=== PATIENT | male | born 1940 | race Caucasian/White ===

== ENCOUNTER 2023-05-31 10:32 | Observation (INO) | payer MEDICARE ==
[2023-05-31] MEDS ORDERED: SODIUM CHLORIDE 0.9% 500 ML 500 ML IV STA (12:51)
[2023-05-31 14:12] LABS: Basophils % (A) 0 %; Eosinophils % (A) 0 %; HCT 43.3 % (39.0-53.0); HGB 14.4 gm/dL (13.0-17.5); Lymphocytes # (A) 0.6 k/uL (1.0-4.8); Lymphocytes % (A) 10 %; MCH 31.8 pg (25.0-35.0); MCHC 33.2 g/dL (31.0-37.0); MCV 95.7 fL (80.0-100.0); Mean Platelet Volume 8.4; Monocytes # (A) 0.3 k/uL (0-1.0); Monocytes % (A) 5 %; Neutrophils # (A) 5.5 k/uL (1.3-7.7); Neutrophils % (A) 84 %; Platelet Count 171 k/uL (150-450); RBC 4.53 m/uL (4.30-5.90); RDW 13.4 % (11.5-15.5); WBC 6.5 k/uL (3.8-10.6)
[2023-05-31 14:24] LABS: ALT 17 U/L (4-49); African American GFR (CKD) 81 (>60 ml/min/1.73 sqM); Albumin 4.1 g/dL (3.5-5.0); Anion Gap 8 mmol/L; Blood Urea Nitrogen 18 mg/dL (9-20); Calcium 9.2 mg/dL (8.4-10.2); Carbon Dioxide 22 mmol/L (22-30); Chloride 108 mmol/L (98-107); Glucose 107 mg/dL (74-99); Non-African American GFR(CKD) 70 (>60 ml/min/1.73 sqM); Sodium 138 mmol/L (137-145); Total Bilirubin 0.8 mg/dL (0.2-1.3); Total Protein 7.6 g/dL (6.3-8.2)
[2023-05-31 14:25] LABS: AST 28 U/L (17-59); Alkaline Phosphatase 77 U/L (38-126); Potassium 4.5 mmol/L (3.5-5.1)
--- NOTE | 2023-05-31 15:10 | XR ---
EXAMINATION TYPE: XR chest 2V DATE OF EXAM: 05/31/2023 3:05 PM CLINICAL INDICATION:Male, 83 years old with history of lightheaded, vomiting; PHH COMPARISON: None TECHNIQUE: XR chest 2V Frontal and lateral views of the chest. FINDINGS: Lungs/Pleura: There is no evidence of pleural effusion, focal consolidation, or pneumothorax. Pulmonary vascularity: Unremarkable. Heart/mediastinum: Cardiomediastinal silhouette is unremarkable. A loop recorder projects over the le ft thorax over the heart. Musculoskeletal: No acute osseous pathology. Midline sternotomy wires are noted. Remote right-sided r ib fractures. Other findings: Radiopaque foreign body projects over the left shoulder. IMPRESSION: No acute cardiopulmonary disease/process.
--- NOTE | 2023-05-31 15:15 | CT ---
EXAMINATION TYPE: CT brain wo con DATE OF EXAM: 05/31/2023 COMPARISON: None HISTORY: Ataxia and slurred speech CT DLP: 1095.4 mGycm Automated exposure control for dose reduction was used. FINDINGS: The ventricles, basal cisterns and sulci over the convexities are within normal limits for the patien t's age and there is no mass effect or shift of the midline structures. There is a small remote infarct involving the left parietal cortex and subcortical white matter. There are remote infarcts in the left basal ganglia with mild ex vacuo dilatation of left lateral yusef tricle There is a subtle 9.8 mm round area of decreased density in the left frontal subcortical white matte r. This could be artifactual and caused by volume averaging with adjacent sulcus. Cannot definitively exclude a small focal mass. MRI of the brain with contrast would be useful for further evaluation. There is no acute intra or extra-axial hemorrhage. The posterior fossa including the brainstem, fourth ventricle and cerebellar pontine angles are gross ly normal. Intraorbital contents appear normal and symmetric. Visualized paranasal sinuses and mastoid air cells are well aerated. IMPRESSION: 1. NO ACUTE BLEED OR MASS EFFECT. 2. REMOTE LEFT PARIETAL AND LEFT BASAL GANGLIA INFARCTS. 3. CANNOT EXCLUDE SMALL MASS IN THE LEFT FRONTAL REGION DESCRIBED ABOVE. MRI THE BRAIN WITH CONTRA ST WOULD BE USEFUL FOR FURTHER EVALUATION.
[2023-05-31] MEDS ORDERED: ASPIRIN 325 MG TAB PO STA (16:06)
--- NOTE | 2023-05-31 16:07 | ED ---
Dizziness HPI - General Chief Complaint: Dizziness Stated Complaint: dizziness Time Seen by Provider: 05/31/23 12:05 Source: patient Mode of arrival: ambulatory Limitations: no limitations - History of Present Illness Initial Comments: 83-year-old male with past medical history of A. fib, previous CVA with no residual deficits he presents emergency department reporting dizziness. Reports to intermittent episodes of dizziness upon standing and positional changes. Patient had an episode this morning when he got acutely dizzy while at the kitchen table. He had an episode of vomiting. Family reports that he was having difficulties with ambulation. Upon arrival to the hospital the patient states that his symptoms completely resolved. There is no associated headaches or visual changes. No speech deficits, confusion, unilateral numbness or wea kness. states the patient has had previous episodes of dizziness previously. He had an episode where he had some slurred speech. He was never evaluated for it. He does have A. fib. He does not take any anticoagulation. No recent upper respiratory infections. No recent head trauma. No other alleviating, precipitating or modifying factors - Related Data Home Medications Medication Instructions Recorded Confirmed Rosuvastatin [Crestor] 10 mg PO DAILY 05/31/23 05/31/23 lisinopriL [Zestril] 10 mg PO DAILY 05/31/23 05/31/23 Allergies Allergy/AdvReac Type Severity Reaction Status Date / Time No Known Allergies Allergy Verified 05/31/23 17:17 Review of Systems ROS Statement: Those systems with pertinent positive or pertinent negative responses have been documented in the HPI. ROS Other: All systems not noted in ROS Statement are negative. General Exam Limitations: no limitations General appearance: alert, in no apparent distress Head exam: Present: atraumatic, normocephalic, normal inspection Eye exam: Present: normal appearance, PERRL, EOMI, nystagmus (Horizontal). Absent: scleral icterus, conjunctival injection, periorbital swelling ENT exam: Present: normal exam, mucous membranes moist Neck exam: Present: normal inspection. Absent: tenderness, meningismus, lymp hadenopathy Respiratory exam: Present: normal lung sounds bilaterally. Absent: respiratory distress, wheezes, rales, rhonchi, stridor Cardiovascular Exam: Present: regular rate, normal rhythm, normal heart sounds. Absent: systolic murmur, diastolic murmur, rubs, gallop, clicks GI/Abdominal exam: Present: soft, normal bowel sounds. Absent: distended, tenderness, guarding, rebound, rigid Extremities exam: Present: normal inspection, full ROM, normal capillary refill. Absent: tenderness, pedal edema, joint swelling, calf tenderness Back exam: Present: normal inspection Neurological exam: Present: alert, oriented X3, CN II-XII intact, normal gait, other (No dysdiadochokinesia. Finger to nose is symmetric bilaterally) Psychiatric exam: Present: normal affect, normal mood Skin exam: Present: warm, dry, intact, normal color. Absent: rash Course Vital Signs 05/31/23 05/31/23 05/31/23 11:37 12:00 13:00 Temperature 95.9 F L Pulse Rate 60 60 60 Respiratory 18 Rate Blood Pressure 158/71 129/65 131/70 O2 Sat by Pulse 99 99 98 Oximetry 05/31/23 05/31/23 05/31/23 14:00 14:22 16:43 Temperature Pulse Rate 61 64 65 Respiratory 18 18 Rate Blood Pressure 134/76 119/75 117/63 O2 Sat by Pulse 98 98 98 Oximetry Medical Decision Making - Medical Decision Making Was pt. sent in by a medical professional or institution (, PA, SHOT CORE DRILL OPERATOR, urgent care, hospital, or fpc...) When possible be specific @ -No Did you speak to anyone other than the patient for history (EMS, parent, family, police, friend...)? What history was obtained from this source @ -Spoke with patient's family Did you review nursing and triage notes (agree or disagree)? Why? @ -I reviewed and agree with nursing and triage notes Were old charts reviewed (outside hosp., previous admission, EMS record, old EKG, old radiological studies, urgent care reports/EKG's, fpc records)? Report findings @ -No old charts were reviewed Differential Diagnosis (chest pain, altered mental status, abdominal pain women, abdominal pain men, vaginal bleeding, weakness, fever, dyspnea, syncope, hea dache, dizziness, GI bleed, back pain, seizure, CVA, palpatations, mental health, musculoskeletal)? @ -Differential Dizziness: Benign paroxysmal positional Vertigo, Menieres disease, otitis media, acoustic neuroma, vertebrobasilar insufficiency, cerebellar stroke, encephalitis, hypovolemic, arrhythmia, coronary artery syndrome, anemia, this is not meant to be an all-inclusive list EKG interpreted by me (3pts min.). @ -First EKG done at 1151 demonstrates a flutter with a rate of 59. QRS 100. QTC 448. No acute ST segment elevations or depressions Second EKG done at 1318 demonstrates a flutter with a rate of 59. QRS 108. QTC of 438. No acute ST segment elevations or depressions X-rays interpreted by me (1pt min.). @ -Yes and demonstrates no acute process CT interpreted by me (1pt min.). @ -Yes and demonstrates multiple old CVAs. Possible 9 mm mass left frontal lobe U/S interpreted by me (1pt. min.). @ -None done What testing was considered but not performed or refused? (CT, X-rays, U/S, la bs)? Why? @ -MRI however not available until tomorrow What meds were considered but not given or refused? Why? @ -None Did you discuss the management of the patient with other professionals (professionals i.e. , PA, SHOT CORE DRILL OPERATOR, lab, RT, psych nurse, manager social services, pit recorder, teacher, event security officer, protective services case worker)? Give summary @ -Spoke with Dr. Frey who was agreeable to admitting the patient Was smoking cessation discussed for >3mins.? @ -No Was critical care preformed (if so, how long)? @ -No Were there social determinants of health that impacted care today? How? (Homelessness, low income, unemployed, alcoholism, drug addiction, transportation, low edu. Level, literacy, decrease access to med. care, skilled nursing, rehab)? @ -No Was there de-escalation of care discussed even if they declined (Discuss DNR or withdrawal of care, Hospice)? DNR status @ -No What co-morbidities impacted this encounter? (DM, HTN, Smoking, COPD, CAD, Cancer, CVA, ARF, Chemo, Hep., AIDS, mental health diagnosis, sleep apnea, morbid obesity)? @ -A flutter/afib Was patient admitted / discharged? Hospital course, mention meds given and route, prescriptions, significant lab abnormalities, going to OR and other pertinent info. @ -Upon arrival patient was evaluated in room 27. Thorough history and ph ysical exam was performed. IV was established. Laboratory studies were conducted. Patient is completely asymptomatic upon my evaluation. He is able to ambulate without difficulty. Orthostatics were obtained and are negative. Laboratory studies are completed. CT of the brain was performed which demonstrates old CVA with a questionable mass left frontal lobe. I did discuss the findings with family. I did call and speak with MRI. They are unable to obtain an MRI until tomorrow. I did call and spoke with Dr. Frey to request permission for admission until tomorrow. He was agreeable to admit the patient. MRI is ordered. he is requesting CTA which is also ordered. Patient remained asymptomatic and is awaiting a bed on the floor Orthostatics performed and are negative - supine blood pressure 125/63 with heart rate of 55, sitting blood pressure 120/70 with heart rate of 65, standing blood pressure 119/75 with a heart rate of 66 Undiagnosed new problem with uncertain prognosis? @ -Yes Drug Therapy requiring intensive monitoring for toxicity (Heparin, Nitro, Insulin, Cardizem)? @ -No Were any procedures done? @ -No Diagnosis/symptom? @ -Acute vertigo, possible frontal mass, aflutter, hx CVA Acute, or Chronic, or Acute on Chronic? @ -acute Uncomplicated (without systemic symptoms) or (systemic symptoms)? @ -complicated Side effects of treatment? @ -No Exacerbation, Progression, or Severe Exacerbation? @ -No Poses a threat to life or bodily function? How? (Chest pain, USA, MA, pneumonia, PE, COPD, DKA, ARF, appy, cholecystitis, CVA, Diverticulitis, Homicidal, Suicidal, threat to staff... and all critical care pts) @ -No - Lab Data Result diagrams: 05/31/23 13:59 05/31/23 13:59 Lab Results 05/31/23 05/31/23 05/31/23 Range/Units 13:59 13:59 13:59 WBC 6.5 (3.8-10.6) k/uL RBC 4.53 (4.30-5.90) m/uL Hgb 14.4 (13.0-17.5) gm/dL Hct 43.3 (39.0-53.0) % MCV 95.7 (80.0-100.0) fL MCH 31.8 (25.0-35.0) pg MCHC 33.2 (31.0-37.0) g/dL RDW 13.4 (11.5-15.5) % Plt Count 171 (150-450) k/uL MPV 8.4 Neutrophils % 84 % Lymphocytes % 10 % Monocytes % 5 % Eosinophils % 0 % Basophils % 0 % Neutrophils # 5.5 (1.3-7.7) k/uL Lymphocytes # 0.6 L (1.0-4.8) k/uL Monocytes # 0.3 (0-1.0) k/uL Eosinophils # 0.0 (0-0.7) k/uL Basophils # 0.0 (0-0.2) k/uL Carbon Monoxide, Quant (<10.0) % Sodium 138 (137-145) mmol/L Potassium 4.5 (3.5-5.1) mmol/L Chloride 108 H (98-107) mmol/L Carbon Dioxide 22 (22-30) mmol/L Anion Gap 8 mmol/L BUN 18 (9-20) mg/dL Creatinine 0.99 (0.66-1.25) mg/dL Est GFR (CKD-EPI)AfAm 81 (>60 ml/min/1.73 sqM) Est GFR (CKD-EPI)NonAf 70 (>60 ml/min/1.73 sqM) Glucose 107 H (74-99) mg/dL Calcium 9.2 (8.4-10.2) mg/dL Total Bilirubin 0.8 (0.2-1.3) mg/dL AST 28 (17-59) U/L ALT 17 (4-49) U/L Alkaline Phosphatase 77 (38-126) U/L Troponin I 0.017 (0.000-0.034) ng/mL Total Protein 7.6 (6.3-8.2) g/dL Albumin 4.1 (3.5-5.0) g/dL 05/31/23 Range/Units 13:59 WBC (3.8-10.6) k/uL RBC (4.30-5.90) m/uL Hgb (13.0-17.5) gm/dL Hct (39.0-53.0) % MCV (80.0-100.0) fL MCH (25.0-35.0) pg MCHC (31.0-37.0) g/dL RDW (11.5-15.5) % Plt Count (150-450) k/uL MPV Neutrophils % % Lymphocytes % % Monocytes % % Eosinophils % % Basophils % % Neutrophils # (1.3-7.7) k/uL Lymphocytes # (1.0-4.8) k/uL Monocytes # (0-1.0) k/uL Eosinophils # (0-0.7) k/uL Basophils # (0-0.2) k/uL Carbon Monoxide, Quant 2.4 (<10.0) % Sodium (137-145) mmol/L Potassium (3.5-5.1) mmol/L Chloride (98-107) mmol/L Carbon Dioxide (22-30) mmol/L Anion Gap mmol/L BUN (9-20) mg/dL Creatinine (0.66-1.25) mg/dL Est GFR (CKD-EPI)AfAm (>60 ml/min/1.73 sqM) Est GFR (CKD-EPI)NonAf (>60 ml/min/1.73 sqM) Glucose (74-99) mg/dL Calcium (8.4-10.2) mg/dL Total Bilirubin (0.2-1.3) mg/dL AST (17-59) U/L ALT (4-49) U/L Alkaline Phosphatase (38-126) U/L Troponin I (0.000-0.034) ng/mL Total Protein (6.3-8.2) g/dL Albumin (3.5-5.0) g/dL Disposition Clinical Impression: Vertigo, Atrial flutter, Brain mass Disposition: ADMITTED IP TO THIS HOSP Condition: Stable Is patient prescribed a controlled substance at d/c from ED?: No Time of Disposition: 16:13 Decision to Admit Reason: Admit from EC Decision Date: 05/31/23 Decision Time: 16:13
[2023-05-31] MEDS ORDERED: NALOXONE 0.4 MG/ML 1 ML VIAL IV PRN (16:14)
--- NOTE | 2023-05-31 18:10 | P.HPIM ---
History of Present Illness H&P Date: 05/31/23 Patient is a 83-year-old male with history of CAD status post CABG, atrial fibrillation, prior strokes with no deficits presenting after an episode of lightheadedness. He claims that using the bathroom this morning and while urinating he had an episode where he felt weakness and lightheadedness. He denies any chest pain, shortness of breath, abdominal pain, urinary or bowel complaints. He did have an episode of emesis after he had that episode of syncope. He denies any other recent falls. He denies any travel history, sick contacts, fevers, chills. In the ED, temperature was 95.9, pulse 60, respiratory rate 18, blood pressure 158/71, saturating at 99% on room air. WBC 6.5, hemoglobin 14.4, potassium 4.5, chloride 108, glucose 107, creatinine 0.99, troponin 0.017. Chest x-ray personally interpreted shows no acute process. CT head does not show any acute bleed or mass effect. Remote left parietal and left basal ganglia infarcts. Also says cannot exclude small mass in the left frontal region. Patient would benefit from an MRI. Patient being admitted for further workup for syncope and possible brain mass. Pertinent positives and negatives as discussed in HPI, a complete review of systems was performed and all other systems are negative. Patient seen and examined at bedside. Vital signs reviewed General: nontoxic, no distress, appears at stated age Derm: warm, dry Head: atraumatic, normocephalic, symmetric Eyes: EOMI, no lid lag, anicteric sclera, pupils equal round reactive to light ENT: Nose and ears atraumatic Neck: No thyromegaly, supple Mouth: no lip lesion, mucus membranes moist Cardiovascular: S1S2 reg, systolic murmur, no edema Lungs: clear to auscultation bilateral, no rhonchi, no rales, no wheeze, no accessory muscle use Abdominal: soft, nontender to palpation, no guarding, no appreciable organomegaly Ext: no gross muscle atrophy, muscle strength muscle strength 5 out of 5 in all 4 extremities, no contractures Neuro: CN II-XII grossly intact Psych: Alert, oriented, appropriate affect Assessment/Plan: Syncope, likely vasovagal History of prior CVA Suspected left frontal lobe mass History of atrial fibrillation CAD status post CABG Hypertension -Most of his symptoms have now resolved -Orthostatic vitals pending -Patient does have a systolic murmur, would benefit from echocardiogram as an outpatient -CTA head and neck pending -MRI brain with and without contrast pending to evaluate possible left frontal lobe mass -Continue telemetry -Continue rosuvastatin 10 mg, started on ASA 81 mg -Continue lisinopril 10 mg The patient is admitted with an anticipated less than 2 midnight stay as observation status for evaluation of brain mass. Surrogate decision-maker: Son CODE STATUS: Full code DVT prophylaxis: Lovenox Anticipated discharge date: Pending clinical course Anticipated discharge place: Pending clinical course A total of 66 minutes was spent on the care of this complex patient more than 50% of the time was spent in counseling and care coordination. Medications and Allergies Home Medications Medication Instructions Recorded Confirmed Type Rosuvastatin [Crestor] 10 mg PO DAILY 05/31/23 05/31/23 History lisinopriL [Zestril] 10 mg PO DAILY 05/31/23 05/31/23 History Allergies Allergy/AdvReac Type Severity Reaction Status Date / Time No Known Allergies Allergy Verified 05/31/23 17:17 Physical Exam Vitals: Vital Signs Temp Pulse Resp BP Pulse Ox 05/31/23 16:43 65 18 117/63 98 05/31/23 14:22 64 18 119/75 98 05/31/23 14:00 61 134/76 98 05/31/23 13:00 60 131/70 98 05/31/23 12:00 60 129/65 99 05/31/23 11:37 95.9 F L 60 18 158/71 99 Intake and Output 05/31/23 05/31/23 05/31/23 06:59 14:59 22:59 Other: Weight 77.111 kg Results CBC & Chem 7: 05/31/23 13:59 05/31/23 13:59 Labs: Abnormal Lab Results - Last 24 Hours (Table) 05/31/23 05/31/23 Range/Units 13:59 13:59 Lymphocytes # 0.6 L (1.0-4.8) k/uL Chloride 108 H (98-107) mmol/L Glucose 107 H (74-99) mg/dL
--- NOTE | 2023-06-01 03:40 | CT ---
EXAMINATION TYPE: CT angio head neck DATE OF EXAM: 05/31/2023 5:32 PM COMPARISON: Earlier same day CT brain. CLINICAL INDICATION:Male, 83 years old with history of recurrent vertigo; PHH, Recurrent vertigo TECHNIQUE: Axially acquired helical CT angiogram of the head and neck was obtained with contrast. Axi al images are supplemented with 3D reconstructions [facility] NASCET criteria used. Contrast used: 65 mL of Isovue 300 with IV Contrast, Oral contrast used: None. CT DLP: 495.9 mGycm, Automated exposure control for dose reduction was used. FINDINGS: CTA Neck: A 3 vessel aortic arch is shown. Atherosclerotic plaque is present in the aortic arch and at the origin of the branch vessels, without significant stenosis at the origins. LEFT CIRCULATION: Slightly farther distally in the proximal left subclavian artery there is crescenti c mostly soft plaque resulting in under 50% stenosis. Coarse calcific plaque at the origin of the lef t vertebral artery with approximately 70% diameter stenosis. The more distal vertebral artery is tort uous before entering the vertebral column, but is patent throughout the cervical segments to the skul l base. Left vertebral is slightly dominant. The common carotid shows multifocal mixed plaques but is patent without significant stenosis. At the carotid bifurcation and extending into the proximal ICA, there is moderate to heavy mixed soft and ca lcified plaque, associated with 50% maximum diameter stenosis. ICA is then patent to the skull base. No dissection or pseudoaneurysm is evident. RIGHT CIRCULATION: Brachiocephalic artery is patent. Mixed mostly soft plaque in the proximal right s ubclavian artery results in under 50% stenosis. Common carotid is patent, with multifocal atheroscler otic disease resulting in under 50% stenosis. Mixed atherosclerotic disease at the carotid bifurcatio n and proximal ICA associated with less than 50% stenosis. Additional coarse calcifications slightly farther distally without significant stenosis. ICA is then patent to the skull base. No dissection or pseudoaneurysm is evident. Other: Included lung apices show mild scarring and emphysematous changes without acute infiltrate. Pu lmonary trunk appears normal in size at 2.6 cm but the right and left main arteries are prominent thanh suring up to 2.8 cm and 2.5 cm respectively, suggestive of pulmonary hypertension. Partially seen ant erior mediastinal clips and sternal wire sutures, likely from prior CABG. Moderate degenerative mejia es of the cervical spine, with mild reversal of the normal lordosis. Disc osteophyte complexes and fa cet disease causes mild to moderate canal and left neural foraminal stenosis C3-C4, moderate to sever e right neural foraminal stenosis. At C4-C5, moderate spinal canal and bilateral neural foraminal chelly noses. At C5-C6, moderate spinal canal and left neural foraminal stenosis, moderate to severe right n euroforaminal stenosis. At C6-C7, moderate canal and bilateral neural foraminal stenosis. Several coa rse calcifications within the left parotid. Multiple tonsilloliths of the bilateral palatine tonsils. CTA Head: POSTERIOR CIRCULATION: There are a couple of areas of calcification with less than 50% stenosis in th e V4 segment of the left vertebral. In the V4 segment of the right vertebral, there is coarse calcifi cation in its midportion which appears associated with approximately 75% stenosis. Basilar artery is patent. Major branches in the posterior fossa appear patent. The right SURGICAL SERVICES DIRECTOR arises from the basilar. T here is a origin of the left SURGICAL SERVICES DIRECTOR arising from the anterior circulation. No sizable right lawn service worker ior communicating artery is seen. There is no high-grade stenosis or major vascular occlusion demonst rated. No sizable aneurysm or evidence of AVM. ANTERIOR CIRCULATION: Tubular atherosclerotic calcification of the siphon portions of the bilateral I Felipe, with under 50% stenosis. Bifurcations are patent. There is mild to moderate diffuse irregularity involving the MCA's, ACAs, anterior communicating artery likely due to atherosclerotic disease. Ther e is no major vascular occlusion demonstrated. No sizable aneurysm or evidence of AVM. Other: Redemonstration of remote left parietal lobe and basal ganglia infarcts. No new intracranial h emorrhage, midline shift, mass effect, or loss of griffin/white matter distinction is seen compared to t he earlier study. No definite enhancing masses by CT. Osseous structures appear unchanged. The dural venous sinuses appear patent without evidence of thrombosis. IMPRESSION: CTA neck: 1. No dissection or pseudoaneurysm detected in the carotid or vertebral arteries in the neck. 2. Diffuse atherosclerotic disease is present, as detailed above. This includes: * Plaque in the proximal left subclavian artery with under 50% stenosis. * Coarse calcific plaque at the origin of the left vertebral artery (which is slightly dominant) wit h approximately 70% diameter stenosis. * Plaque at the left carotid bifurcation and extending into the proximal left ICA, with 50% maximum diameter stenosis. * Plaque of the proximal right subclavian artery with under 50% stenosis. * Mixed atherosclerotic disease at the right carotid bifurcation and proximal right ICA, associated with less than 50% stenosis. 3. Prominent pulmonary arteries, suggestive of pulmonary hypertension. 4. Moderate multilevel cervical spondylosis, as above. CTA head: 1. No intracranial major vascular occlusion, or sizable aneurysm detected in the limits of CTA. 2. A couple foci of calcification with less than 50% stenosis in the V4 segment of the left vertebra l. 3. Coarse calcification in the midportion of the V4 segment of the right vertebral, appears associat ed with approximately 75% stenosis. 4. Tubular atherosclerotic calcification of the siphon portions of the bilateral ICAs, with under 50 % stenosis. 5. Mild to moderate diffuse irregularity of intracranial arteries suggestive of atherosclerotic dise ase.
[2023-06-01 08:10] VITALS: BP 118/66; RESP 16; TEMP 98.4
[2023-06-01] MEDS ORDERED: lisinopriL 10 MG TAB PO SCH (09:00)
[2023-06-01] MEDS ORDERED: ASPIRIN 81 MG PO SCH (09:00)
[2023-06-01] MEDS ORDERED: ATORVASTATIN 20 MG TAB PO SCH (09:00)
[2023-06-01] MEDS ORDERED: ENOXAPARIN 40 MG/0.4 ML SYRINGE SQ SCH (09:00)
[2023-06-01 09:03] VITALS: PULSE 54
[2023-06-01 09:36] LABS: Basophils # (A) 0.05 X 10*3/uL (0.00-0.10); Eosinophils # (A) 0.13 X 10*3/uL (0.04-0.35); Eosinophils % (A) 2.5 %; HCT 38.1 % (39.6-50.0); HGB 12.7 g/dL (13.0-17.0); Immature Grans, Automated 0 %; Lymphocytes # (A) 1.44 X 10*3/uL (0.90-5.00); MCH 31.3 pg (27.0-32.0); MCHC 33.3 g/dL (32.0-37.0); MCV 93.8 FL (80.0-97.0); Mean Platelet Volume 10.4 FL (9.5-12.2); Monocytes # (A) 0.43 X 10*3/uL (0.20-1.00); Monocytes % (A) 8.3 %; NRBC Per 100 WBC 0 X 10*3/uL (0.00-0.01); Neutrophils % (A) 60.2 %; Platelet Count 183 X 10*3/uL (140-440); RBC 4.06 X 10*6/uL (4.40-5.60); WBC 5.15 X 10*3/uL (4.50-10.00)
[2023-06-01 09:53] LABS: BUN/Creat Ratio 13.82 Ratio (12.00-20.00); Blood Urea Nitrogen 15.2 mg/dL (9.0-27.0); Calcium 8.9 mg/dL (8.7-10.3); Carbon Dioxide 21.4 mmol/L (21.6-31.8); Chloride 108 mmol/L (96-109); Glucose 105 mg/dL (70-110); Potassium 4.2 mmol/L (3.5-5.5); Sodium 138 mmol/L (135-145)
--- NOTE | 2023-06-01 13:25 | P.DS ---
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 He presented to the ER on 05/31/23 after an episode of lightheadedness. Patient reported that while using the bathroom he had an episode where he felt weakness and lightheadedness. He denied any chest pain, shortness of breath, abdominal pain, urinary or bowel complaints. He did have an episode of emesis after he had that episode of near syncope. He underwent full evaluation in the emergency department. Vital signs reviewed showing 95.9F temporal temp, heart rate 60, respiratory rate 18, blood pressure 158/71, and SpO2 of 99% on room air. EKG revealing atrial flutter with slow ventricular response at 59 bpm (patient has known history of atrial fibrillation/flutter and reports that he follows with a ingot stripper in [place] and took himself off of all medications years ago). Labs completed and reviewed WBC 6.5, hemoglobin 14.4, sodium 138, potassium 4.5, chloride 108, glucose 107, creatinine 0.99, and troponin 0.017. Chest x-ray completed and was negative for acute process. CT head negative for acute intracranial abnormality but did reveal remote left parietal and left basal ganglia infarcts. Radiology report also stating that they are unable to rule out a small mass in the left frontal region recommending further investigation with MRI. Patient was admitted under our services with consult to cardiology for further workup for near syncope and possible brain mass. Upon admission patient was asymptomatic to previous reports of dizziness and stated that all symptoms subsided. He was monitored overnight and upon completing MRI form pt has a loop recorder and was unable to verify type. Pt and pt's family at bedside states all of his records and doctors are in [place] and that they don't want to wait for records to be received they want to be discharged. Pt states that he wants to be seen by his own doctors because he feels great and does not want to stay in the hospital any longer. Pt and family were educated on the importance of obtaining this MRI to rule out underlying brain mass/lesion and this was also written out on patient's discharge summary Patient seen and examined at bedside. Vital signs reviewed and stable. General: Nontoxic, no distress and appears stated age. Derm: Skin warm and dry, normal coloration for ethnicity. Head: Atraumatic, normocephalic and symmetric. Eyes: EOMs intact, no lid lag, and anicteric sclera Mouth: no lip lesions, mucus membranes moist Cardiovascular: Irregularly irregular, systolic murmur, positive posterior tibial pulses bilaterally, and cap refill < 2 seconds. Lungs: Respirations even, regular, and unlabored on room air. Lungs CTA bilater ally, no rhonchi, no rales, no wheezing, and no accessory muscle usage. Abdominal: soft, nontender to palpation, no guarding, no appreciable organomegaly Ext: ROM intact. No gross muscle atrophy, no edema, no contractures Neuro: Speech clear, face symmetrical and CN II-XII grossly intact with no noted focal neuro deficits Psych: Alert and oriented to person, place, time, and situation. Appropriate and pleasant affect. A total of 33 minutes of time were spent preparing this complex discharge summary. Pt was discharged on 06/01/23 at 12:49 PM. Patient was seen independently by Nurse Practitioner. This document was prepared using [employer] dictation software. Please allow for errors in auto parker while rare they do occur. Olvin Marcos NP rendered care for this patient independently, reviewed the findings and plan as documented in the note above. I did not physically speak with or examine the patient on this date. Patient Condition at Discharge: Stable Plan - Discharge Summary Discharge Rx Participant: No New Discharge Prescriptions: New Aspirin 81 mg PO DAILY tab Continue Rosuvastatin [Crestor] 10 mg PO DAILY lisinopriL [Zestril] 10 mg PO DAILY Discharge Medication List Rosuvastatin [Crestor] 10 mg PO DAILY 05/31/23 [History] lisinopriL [Zestril] 10 mg PO DAILY 05/31/23 [History] Aspirin 81 mg PO DAILY tab 06/01/23 [Rx] Follow up Appointment(s)/Referral(s): None,Stated [Primary Care Provider] - 1-2 days Patient Instructions/Handouts: Syncope (DC) Activity/Diet/Wound Care/Special Instructions: Activity: As tolerated. Take breaks as needed. Diet: Heart healthy and carb consistent diet. Avoid salts, or foods with hidden salts such as canned or boxed foods and frozen dinners. Extra salt makes your heart work harder and traps the fluid in your body for longer. Special Instructions: Take all of your medications as directed and remember to keep all of your doctor's appointments and follow-up as needed. I understand that this time that you report you are feeling great and deny having any complaints and have had no further complaints since arrival to our facility. Per your request and the request of your family members at bedside, you are being discharged home with them so you can return to [facility]. This discharge has been placed by your request prior to evaluation by a ingot stripper and prior to completion of the recommended MRI. MRI brain was recommended secondary to inability to rule out an underlying mass or lesion. It is imperative that he follow-up upon returning to your hometown as you will need a further workup and evaluation. It is also highly recommended that you are evaluated by your ingot stripper upon returning home to discuss the possibility of resuming medications/anticoagulants for treatment of your coronary artery disease and atrial fibrillation and again further evaluation for your syncopal/near syncopal episode. Thank you for allowing us to participate in your care, it was truly a pleasure having you for our patient!!! Discharge Disposition: HOME SELF-CARE
== END 2023-06-01 13:04 | disposition home or self-care (01) ==
LOC: EC 10:32 → 6NMEDSUR 16:14
PROVIDERS: ADMIT Student in an Organized Health Care Education/Training Program; ATTEND Student in an Organized Health Care Education/Training Program
DX: R55 Syncope and collapse (principal); G93.89 Other specified disorders of brain; R42 Dizziness and giddiness; I48.92 Unspecified atrial flutter; I48.91 Unspecified atrial fibrillation; I25.10 Atherosclerotic heart disease of native coronary artery without angina pectoris; I10 Essential (primary) hypertension; Z86.73 Personal history of transient ischemic attack (TIA), and cerebral infarction without residual deficits; Z95.1 Presence of aortocoronary bypass graft; Z79.899 Other long term (current) drug therapy
CPT/HCPCS: 96360; 99285; 36415 ×2; 93005; 80053; 80048; 82375; 84484; 85025 ×2; 71046; 70496; 70450; 70498; G0378 ×2; Q9967

== ENCOUNTER 2024-07-01 13:00 | Inpatient (IN) | payer MEDICARE ==
--- NOTE | 2024-07-01 13:54 | ED ---
Dizziness HPI - General Chief Complaint: Dizziness Stated Complaint: Dizziness, hypertension Time Seen by Provider: 07/01/24 13:15 Source: patient, EMS, RN notes reviewed Mode of arrival: EMS - History of Present Illness Initial Comments: This is an 84-year-old male with history of A-fib, CVA, brain mass and quadruple bypass presenting via EMS with later arrival of and son presenting with dizziness and nausea x 1 day. Patient states symptoms have been intermittent for the past year, stating recurrence has been more frequently in the past 3 days, occurring on 4 separate occasions. Patient states he was putting up drywall when the most recent incident occurred with associated sweating. states patient's speech has been "off" for the past several days, stating that he sounds different than usual but denies slurring of speech. Denies chest pain, dyspnea, abdominal pain, radiating pain, headache, vertigo. Endorses use of Eliquis and ASA 81 daily. MD Complaint: dizziness Onset/Timin -: days(s) Timing: sudden onset Description: off-balance, nausea History of Same: Yes History of Trauma: No Associated Symptoms: diaphoresis, other (Nausea) - Related Data Home Medications Medication Instructions Recorded Confirmed Apixaban [Eliquis] 5 mg PO BID 07/01/24 07/01/24 Atorvastatin [Lipitor] 80 mg PO DAILY 07/01/24 07/01/24 Omeprazole Magnesium [PriLOSEC OTC] 20 mg PO DAILY PRN 07/01/24 07/01/24 Pantoprazole [Protonix] 40 mg PO DAILY 07/01/24 07/01/24 Previous Rx's Medication Instructions Recorded Aspirin 81 mg PO DAILY tab 06/01/23 Allergies Allergy/AdvReac Type Severity Reaction Status Date / Time No Known Allergies Allergy Verified 07/01/24 17:20 Review of Systems ROS Statement: Those systems with pertinent positive or pertinent negative responses have been documented in the HPI. ROS Other: All systems not noted in ROS Statement are negative. Past Medical History Past Medical History: Atrial Fibrillation, CVA/TIA, Myocardial Infarction ([place]) Last Myocardial Infarction Date:: 15 years ago History of Any Multi-Drug Resistant Organisms: None Reported Past Surgical History: Coronary Bypass/CABG Past Anesthesia/Blood Transfusion Reactions: No Reported Reaction Past Psychological History: No Psychological Hx Reported Smoking Status: Former smoker General Exam General appearance: alert, in no apparent distress Head exam: Present: atraumatic, normocephalic, normal inspection Eye exam: Present: normal appearance, PERRL, EOMI, other (Hints exam negative). Absent: scleral icterus, conjunctival injection, nystagmus, periorbital swelling Pupils: Present: normal accommodation ENT exam: Present: normal exam, mucous membranes moist Neck exam: Present: normal inspection. Absent: tenderness, meningismus, lymphadenopathy Respiratory exam: Present: normal lung sounds bilaterally. Absent: respiratory distress, wheezes, rales, rhonchi, stridor Cardiovascular Exam: Present: regular rate, normal rhythm, normal heart sounds. Absent: systolic murmur, diastolic murmur, rubs, gallop, clicks GI/Abdominal exam: Present: soft, normal bowel sounds. Absent: distended, tenderness, guarding, rebound, rigid Extremities exam: Present: normal inspection, full ROM, normal capillary refill. Absent: tenderness, pedal edema, joint swelling, calf tenderness Back exam: Present: normal inspection Neurological exam: Present: alert, oriented X3, CN II-XII intact, other ([place] stroke test negative) Psychiatric exam: Present: normal affect, normal mood Skin exam: Present: warm, dry, intact, normal color. Absent: rash Course Vital Signs 07/01/24 07/01/24 07/01/24 13:06 13:14 13:18 Temperature 97.6 F Pulse Rate 96 95 Pulse Rate [ 80 Skirt Trimmer ] Respiratory 17 15 Rate Blood Pressure 165/99 O2 Sat by Pulse 100 100 Oximetry 07/01/24 07/01/24 07/01/24 14:15 15:26 16:33 Temperature 96.1 F L 97.3 F L Pulse Rate 77 96 61 Pulse Rate [ Skirt Trimmer ] Respiratory 15 19 24 Rate Blood Pressure 131/71 113/76 150/85 O2 Sat by Pulse 98 98 98 Oximetry 07/01/24 07/01/24 07/01/24 18:24 20:00 21:00 Temperature Pulse Rate 81 91 68 Pulse Rate [ Skirt Trimmer ] Respiratory 17 18 18 Rate Blood Pressure 147/95 100/78 117/67 O2 Sat by Pulse 100 96 96 Oximetry 07/01/24 22:00 Temperature Pulse Rate 93 Pulse Rate [ Skirt Trimmer ] Respiratory 18 Rate Blood Pressure 111/66 O2 Sat by Pulse 96 Oximetry Medical Decision Making - Medical Decision Making Was pt. sent in by a medical professional or institution (, [facility]ST, MARKETING WRITER, urgent care, hospital, or fdc...) When possible be specific @ -No Did you speak to anyone other than the patient for history (EMS, parent, family, police, friend...)? What history was obtained from this source @ -No Did you review nursing and triage notes (agree or disagree)? Why? @ -I reviewed and agree with nursing and triage notes Were old charts reviewed (outside hosp., previous admission, EMS record, old EKG, old radiological studies, urgent care reports/EKG's, fdc records)? Report findings @ -No old charts were reviewed Differential Diagnosis (chest pain, altered mental status, abdominal pain women, abdominal pain men, vaginal bleeding, weakness, fever, dyspnea, syncope, headache, dizziness, GI bleed, back pain, seizure, CVA, palpatations, mental health, musculoskeletal)? @ -Differential Dizziness: Benign paroxysmal positional Vertigo, Meniere's disease, otitis media, acoustic neuroma, vertebrobasilar insufficiency, cerebellar stroke, encephalitis, hypovolemic, arrhythmia, coronary artery syndrome, anemia, this is not meant to be an all-inclusive list EKG interpreted by me (3pts min.). @ -A-fib with left axis deviation and without ST changes or T wave inversion. Ventricular rate 89 bpm, QRS 116 ms, QTc 389 ms. X-rays interpreted by me (1pt min.). @ -CXR shows no acute cardiopulmonary process. CT interpreted by me (1pt min.). @ - Brain CT and brain neck CTA showed no acute intracranial process, dissection, stenosis or infarction. U/S interpreted by me (1pt. min.). @ -None done What testing was considered but not performed or refused? (CT, X-rays, U/S, labs)? Why? @ -None What meds were considered but not given or refused? Why? @ -None Did you discuss the management of the patient with other professionals (professionals i.e. [facility] [place], MARKETING WRITER, lab, RT, psych nurse, social services designee, principal java software engineer, teacher, energy control officer, telephonic case manager)? Give summary @ -Spoke to Dr. Love who advised cardiac and neuro consult. Was smoking cessation discussed for >3mins.? @ -No Was critical care preformed (if so, how long)? @ -No Were there social determinants of health that impacted care today? How? (Homelessness, low income, unemployed, alcoholism, drug addiction, transportation, low edu. Level, literacy, decrease access to med. care, senior care, rehab)? @ -No Was there de-escalation of care discussed even if they declined (Discuss DNR or withdrawal of care, Hospice)? DNR status @ -No What co-morbidities impacted this encounter? (DM, HTN, Smoking, COPD, CAD, Cancer, CVA, ARF, Chemo, Hep., AIDS, mental health diagnosis, sleep apnea, morbid obesity)? @ -CAD, CVA, A-fib, brain mass Was patient admitted / discharged? Hospital course, mention meds given and route, prescriptions, significant lab abnormalities, going to OR and other p ertinent info. @ -Lab work generally unremarkable except initial elevated troponin of 0.042. CXR shows no acute cardiopulmonary process. Brain CT and brain neck CTA showed no acute intracranial process, dissection, stenosis or infarction. Patient initially given meclizine for dizziness and later given Zofran for nausea as well as aspirin following discovery of elevated troponin. Spoke to Dr. Love who advised cardiac and neuro consult. Undiagnosed new problem with uncertain prognosis? @ -Elevated troponin Drug Therapy requiring intensive monitoring for toxicity (Heparin, Nitro, Insulin, Cardizem)? @ -No Were any procedures done? @ -No Diagnosis/symptom? @ -elevated troponin Acute, or Chronic, or Acute on Chronic? @ -Acute on chronic Uncomplicated (without systemic symptoms) or Complicated (systemic symptoms)? @ -Complicated Side effects of treatment? @ -No Exacerbation, Progression, or Severe Exacerbation? @ -Exacerbation Poses a threat to life or bodily function? How? (Chest pain, [place], [place], pneumonia, PE, COPD, DKA, ARF, appy, cholecystitis, CVA, Diverticulitis, Homicidal, Suicidal, threat to staff... and all critical care pts) @ -No - Lab Data Result diagrams: 07/01/24 14:06 07/01/24 14:06 Lab Results 07/01/24 07/01/24 07/01/24 Range/Units 14:06 14:06 14:06 WBC 5.1 (3.8-10.6) k/uL RBC 4.59 (4.30-5.90) m/uL Hgb 14.3 (13.0-17.5) gm/dL Hct 43.4 (39.0-53.0) % MCV 94.4 (80.0-100.0) fL MCH 31.2 (25.0-35.0) pg MCHC 33.0 (31.0-37.0) g/dL RDW 12.6 (11.5-15.5) % Plt Count 161 (150-450) k/uL MPV 8.9 Neutrophils % 81 % Lymphocytes % 11 % Monocytes % 5 % Eosinophils % 1 % Basophils % 1 % Neutrophils # 4.2 (1.3-7.7) k/uL Lymphocytes # 0.6 L (1.0-4.8) k/uL Monocytes # 0.3 (0-1.0) k/uL Eosinophils # 0.1 (0-0.7) k/uL Basophils # 0.0 (0-0.2) k/uL PT 10.9 (10.0-12.5) sec INR 1.0 (<1.2) APTT 22.8 (22.0-30.0) sec Sodium 136 L (137-145) mmol/L Potassium 3.8 (3.5-5.1) mmol/L Chloride 109 H (98-107) mmol/L Carbon Dioxide 20 L (22-30) mmol/L Anion Gap 7 mmol/L BUN 16 (9-20) mg/dL Creatinine 1.05 (0.66-1.25) mg/dL Est GFR (CKD-EPI)AfAm 75 (>60 ml/min/1.73 sqM) Est GFR (CKD-EPI)NonAf 65 (>60 ml/min/1.73 sqM) Glucose 120 H (74-99) mg/dL Calcium 8.8 (8.4-10.2) mg/dL Magnesium 1.7 (1.6-2.3) mg/dL Total Bilirubin 1.0 (0.2-1.3) mg/dL AST 29 (17-59) U/L ALT 18 (4-49) U/L Alkaline Phosphatase 84 (38-126) U/L Troponin I (0.000-0.034) ng/mL Total Protein 7.1 (6.3-8.2) g/dL Albumin 4.2 (3.5-5.0) g/dL 07/01/24 Range/Units 14:06 WBC (3.8-10.6) k/uL RBC (4.30-5.90) m/uL Hgb (13.0-17.5) gm/dL Hct (39.0-53.0) % MCV (80.0-100.0) fL MCH (25.0-35.0) pg MCHC (31.0-37.0) g/dL RDW (11.5-15.5) % Plt Count (150-450) k/uL MPV Neutrophils % % Lymphocytes % % Monocytes % % Eosinophils % % Basophils % % Neutrophils # (1.3-7.7) k/uL Lymphocytes # (1.0-4.8) k/uL Monocytes # (0-1.0) k/uL Eosinophils # (0-0.7) k/uL Basophils # (0-0.2) k/uL PT (10.0-12.5) sec INR (<1.2) APTT (22.0-30.0) sec Sodium (137-145) mmol/L Potassium (3.5-5.1) mmol/L Chloride (98-107) mmol/L Carbon Dioxide (22-30) mmol/L Anion Gap mmol/L BUN (9-20) mg/dL Creatinine (0.66-1.25) mg/dL Est GFR (CKD-EPI)AfAm (>60 ml/min/1.73 sqM) Est GFR (CKD-EPI)NonAf (>60 ml/min/1.73 sqM) Glucose (74-99) mg/dL Calcium (8.4-10.2) mg/dL Magnesium (1.6-2.3) mg/dL Total Bilirubin (0.2-1.3) mg/dL AST (17-59) U/L ALT (4-49) U/L Alkaline Phosphatase (38-126) U/L Troponin I 0.042 H* (0.000-0.034) ng/mL Total Protein (6.3-8.2) g/dL Albumin (3.5-5.0) g/dL Disposition Clinical Impression: Elevated troponin, Atrial fibrillation Disposition: ADMITTED IP TO THIS HOSP Condition: Good Is patient prescribed a controlled substance at d/c from ED?: No Time of Disposition: 17:54 Decision Date: 07/01/24 Decision Time: 17:54
[2024-07-01] MEDS: MECLIZINE 12.5 MG TAB PO STA (14:13)
[2024-07-01 14:25] LABS: ALT 18 U/L (4-49); AST 29 U/L (17-59); African American GFR (CKD) 75 (>60 ml/min/1.73 sqM); Albumin 4.2 g/dL (3.5-5.0); Alkaline Phosphatase 84 U/L (38-126); Anion Gap 7 mmol/L; Blood Urea Nitrogen 16 mg/dL (9-20); Calcium 8.8 mg/dL (8.4-10.2); Carbon Dioxide 20 mmol/L (22-30); Chloride 109 mmol/L (98-107); Glucose 120 mg/dL (74-99); Magnesium 1.7 mg/dL (1.6-2.3); Non-African American GFR(CKD) 65 (>60 ml/min/1.73 sqM); Potassium 3.8 mmol/L (3.5-5.1); Sodium 136 mmol/L (137-145); Total Protein 7.1 g/dL (6.3-8.2)
[2024-07-01 14:40] LABS: Partial Thromboplastin Time 22.8 sec (22.0-30.0); Prothrombin Time 10.9 sec (10.0-12.5)
--- NOTE | 2024-07-01 14:40 | XR ---
EXAMINATION TYPE: XR chest 2V DATE OF EXAM: 07/01/2024 1:59 PM CLINICAL INDICATION:Male, 84 years old with history of Dizziness; PHH COMPARISON: Chest radiographs from chest radiograph 05/31/2023. TECHNIQUE: XR chest 2V Frontal view of the chest. FINDINGS: Lungs/Pleura: Prominent interstitial lung markings are seen scattered throughout the lungs. No eviden ce of focal consolidation, pneumothorax or pleural effusion. Pulmonary vascularity: Unremarkable. Heart/mediastinum: Cardiomediastinal silhouette is unremarkable. Loop recorder is noted over the lef t hemithorax. Musculoskeletal: Right shoulder is significantly rotated on exam limiting evaluation. No acute osseou s pathology. Midline sternotomy wires are noted. Surgical changes involving the lateral left clavicle . Other findings: None IMPRESSION: Chronic changes without acute pulmonary process. Right shoulder rotation limits evaluation for any a ssociated acute osseous process. If there is any concern for right shoulder injury consider a dedicat ed right shoulder radiograph. [facility], , 07/01/2024 2:38 PM
[2024-07-01 14:45] LABS: Basophils % (A) 1 %; Eosinophils # (A) 0.1 k/uL (0-0.7); Eosinophils % (A) 1 %; HCT 43.4 % (39.0-53.0); HGB 14.3 gm/dL (13.0-17.5); Lymphocytes # (A) 0.6 k/uL (1.0-4.8); Lymphocytes % (A) 11 %; MCH 31.2 pg (25.0-35.0); MCV 94.4 fL (80.0-100.0); Mean Platelet Volume 8.9; Monocytes # (A) 0.3 k/uL (0-1.0); Monocytes % (A) 5 %; Neutrophils # (A) 4.2 k/uL (1.3-7.7); Neutrophils % (A) 81 %; Platelet Count 161 k/uL (150-450); RBC 4.59 m/uL (4.30-5.90); RDW 12.6 % (11.5-15.5); WBC 5.1 k/uL (3.8-10.6)
--- NOTE | 2024-07-01 16:44 | CT ---
EXAMINATION TYPE: CT brain wo con DATE OF EXAM: 07/01/2024 4:31 PM COMPARISON: Previous CT had study dated 05/31/2023.. CLINICAL INDICATION: Male, 84 years old with history of Dizziness, speech change, dizzy TECHNIQUE: Brain: Axial CT images of the brain were obtained with coronal and sagittal reformats created and rev iewed. Contrast used: None. Oral contrast used: None. CT DLP: combined 1531 mGycm, Automated exposure control for dose reduction was used. FINDINGS: Brain: Extra-axial spaces: No abnormal extra-axial fluid collections. Ventricular system: Dilatation in proportion to cerebral atrophy. Cerebral parenchyma: No acute intraparenchymal hemorrhage or mass effect. The griffin-white junction is well differentiated. Scattered hypoattenuating areas are seen within the white matter. Likely old l eft basal ganglia infarct, similar to prior study. Cerebellum: Unremarkable. Mass effect: No evidence of midline shift. Intracranial vasculature: unremarkable Soft tissues: Normal. Calvarium/osseous structures: No depressed skull fracture. Paranasal sinuses and mastoid air cells: Mild scattered paranasal sinus disease. Visualized orbits: Orbital contents are intact. IMPRESSION: No acute intracranial process. [facility], , 07/01/2024 4:42 PM
[2024-07-01] MEDS: ONDANSETRON 4 MG/2 ML VIAL IVP STA ×2 (16:49→17:55)
--- NOTE | 2024-07-01 17:06 | CT ---
EXAMINATION TYPE: CT angio head neck DATE OF EXAM: 07/01/2024 4:31 PM COMPARISON: Previous study dated 05/31/2023.. CLINICAL INDICATION: Male, 84 years old with history of Dizziness, speech change; PHH, dizzy TECHNIQUE: Axially acquired helical CT angiogram of the head and neck was obtained with contrast. Axi al images are supplemented with 3D reconstructions and MIP images which were post-processed at an in dependent workstation. NASCET criteria used. Contrast used:65ml mL of Isovue 370 with IV Contrast, Oral contrast used: None. CT DLP: combined 1531 mGycm, Automated exposure control for dose reduction was used. FINDINGS: CTA HEAD: No evidence of acute intracranial hemorrhage, mass effect, or midline shift. The ventricles, sulci, a nd cisterns are unremarkable. Vertebral arteries: The vertebral arteries are grossly patent without evidence of flow-limiting steno sis. Moderate stenosis of the right V4 segment of the right vertebral artery, similar to prior study. Vertebral artery dominance: Codominant Basilar artery: The basilar artery is intact. The basilar artery bifurcation is normal. Internal Carotid arteries: The cervical, petrous, cavernous and supraclinoid segments are normal. [place]: Patent with no evidence of aneurysm. ACOM: Present without evidence of aneurysm. MCA: Patent with no evidence of aneurysm. GRIPPER MACHINE OPERATOR: Patent with no evidence of aneurysm. PCOM: origin of the left GRIPPER MACHINE OPERATOR. Dural sinuses: Patent. CTA NECK: Right Carotid System: The common carotid artery and external carotid artery demonstrated no evidence of flow-limiting steno sis. The carotid bifurcation demonstrates no evidence of hemodynamically significant stenosis. The re maining portions of the internal carotid artery demonstrated no evidence of flow-limiting stenosis. Left Carotid System: The common carotid artery and external carotid artery are patent. The carotid bifurcation demonstrate s no evidence of hemodynamically significant stenosis. The remaining portions of the internal carotid artery demonstrate no evidence of flow-limiting stenosis. Likely interval endarterectomy compared to prior study with improved flow in the left internal carotid. There is a three-vessel aortic arch. Mixed calcified metastatic plaque throughout the main thoracic a ortic arch branches with up to 50% narrowing in the right subclavian artery. There is moderate approx imately 60-70% stenosis of the proximal left vertebral artery origin due to calcified atherosclerotic plaque. No additional evidence of hemodynamically significant stenosis. Partially visualized postsur gical changes of previous CABG and severe calcification of the [place] coronary arteries. Multilevel cervical spine degenerative changes. Upper thorax: IMPRESSION: 1. No evidence of acute dissection of the cervical internal carotid arteries or vertebral arteries. 2. No flow limiting arterial stenosis in the neck or head. If there is continued clinical concern fo r underlying acute infarction, further evaluation with MRI would be recommended. [facility], , 07/01/2024 5:03 PM
[2024-07-01] MEDS ORDERED: NALOXONE 0.4 MG/ML 1 ML VIAL IV PRN (17:51)
[2024-07-01] MEDS ORDERED: ONDANSETRON 4 MG/2 ML VIAL IVP PRN (17:51)
[2024-07-01] MEDS: ASPIRIN 81 MG PO STA (18:02)
[2024-07-01] MEDS: APIXABAN 5 MG TAB PO SCH (20:47)
[2024-07-02] MEDS: PANTOPRAZOLE 40 MG TABLET PO SCH (08:02)
[2024-07-02] MEDS: ATORVASTATIN 80 MG TAB PO SCH (08:02)
[2024-07-02] MEDS: ASPIRIN 81 MG PO SCH (08:18)
--- NOTE | 2024-07-02 09:33 | P.HPIM ---
History of Present Illness This is a pleasant 84 years old male with past medical history of multiple medical problems as below. He has history of atrial fibrillation and CVA/TIA Patient presents because of dizziness. Patient describes his dizziness as nons pecific and has been going on for about 1 year as on and off. Initially he was on [place] where he had seen doctors for his dizziness and he told me he had MRI of the brain but he does not remember the results. He states that he moved here about a month ago. Over the last few days his dizziness become more frequent. He denies tendency to fall or passing out. Yesterday he vomited once and he felt better after that. Denies blood in his vomit He denies abdominal pain vomiting or diarrhea currently, no urinary symptoms like dysuria or urgency, no chest pain dyspnea or coughing,. Patient denies headache. No weakness tingling or numbness He denies smoking alcohol or illicit drugs He is afebrile and vital stable Labs unremarkable including CBC, BMP, LFT and INR Troponin is elevated with flat affect with 0.04 x 2 and 0.05 EKG showing sinus rhythm at [address]-T changes CTA of the head and neck showing no acute process of dissection or aneurysm CT of the brain is negative for acute process as well Chest x-ray chronic changes without any acute infiltration consolidation or flu id. Review of Systems Review of systems CONSTITUTIONAL: No fever, no malaise, no fatigue. HEENT: No recent visual problems or hearing problems. Denied any sore throat. CARDIOVASCULAR: No orthopnea, PND, no palpitations, no syncope. PULMONARY: No shortness of breath, no cough, no hemoptysis. GASTROINTESTINAL: No diarrhea, no nausea, no vomiting, no abdominal pain. Normoactive bowel sounds. NEUROLOGICAL: No headaches, no weakness, no numbness. HEMATOLOGICAL: Denies any bleeding or petechiae. GENITOURINARY: Denies any burning micturition, frequency, or urgency. MUSCULOSKELETAL/RHEUMATOLOGICAL: Denies any joint pain, swelling, or any muscle pain. ENDOCRINE: Denies any polyuria or polydipsia. Past Medical History Past Medical History: Atrial Fibrillation, CVA/TIA, Myocardial Infarction ([place]) Last Myocardial Infarction Date:: 15 years ago History of Any Multi-Drug Resistant Organisms: None Reported Past Surgical History: Coronary Bypass/CABG Past Anesthesia/Blood Transfusion Reactions: No Reported Reaction Past Psychological History: No Psychological Hx Reported Smoking Status: Former smoker Medications and Allergies Home Medications Medication Instructions Recorded Confirmed Type Aspirin 81 mg PO DAILY tab 06/01/23 07/01/24 Rx Apixaban [Eliquis] 5 mg PO BID 07/01/24 07/01/24 History Atorvastatin [Lipitor] 80 mg PO DAILY 07/01/24 07/01/24 History Omeprazole Magnesium [PriLOSEC OTC] 20 mg PO DAILY PRN 07/01/24 07/01/24 History Pantoprazole [Protonix] 40 mg PO DAILY 07/01/24 07/01/24 History Allergies Allergy/AdvReac Type Severity Reaction Status Date / Time No Known Allergies Allergy Verified 07/01/24 17:20 Physical Exam Vitals: Vital Signs Temp Pulse Pulse Resp BP Pulse Ox 07/02/24 06:30 98.1 F 60 18 102/61 95 07/02/24 04:00 69 18 126/73 95 07/02/24 03:00 71 18 111/80 95 07/02/24 02:00 68 18 105/62 95 07/02/24 01:00 88 18 116/65 95 07/02/24 00:00 74 18 100/65 95 07/01/24 23:00 76 18 121/78 96 07/01/24 22:00 93 18 111/66 96 07/01/24 21:00 68 18 117/67 96 07/01/24 20:00 91 18 100/78 96 07/01/24 18:24 81 17 147/95 100 07/01/24 16:33 61 24 150/85 98 07/01/24 15:26 97.3 F L 96 19 113/76 98 07/01/24 14:15 96.1 F L 77 15 131/71 98 07/01/24 13:18 80 07/01/24 13:14 95 15 100 07/01/24 13:06 97.6 F 96 17 165/99 100 GENERAL: The patient is alert and oriented x3, not in any acute distress. Well developed, well nourished. HEENT: Pupils are round and equally reacting to light. EOMI. No scleral icterus. No conjunctival pallor. Normocephalic, atraumatic. No pharyngeal erythema. No thyromegaly. CARDIOVASCULAR: S1 and S2 present. No murmurs, rubs, or gallops. PULMONARY: Chest is clear to auscultation, no wheezing , no crackles. ABDOMEN: Soft, nontender, nondistended, normoactive bowel sounds. No palpable organomegaly. MUSCULOSKELETAL: No joint swelling or deformity. EXTREMITIES: No cyanosis, clubbing, or pedal edema. NEUROLOGICAL: Gross neurological examination did not reveal any focal deficits. SKIN: No rashes. no petechiae. Results CBC & Chem 7: 07/01/24 14:06 07/01/24 14:06 Labs: Abnormal Lab Results - Last 24 Hours (Table) 07/01/24 07/01/24 07/01/24 Range/Units 14:06 14:06 14:06 Lymphocytes # 0.6 L (1.0-4.8) k/uL Sodium 136 L (137-145) mmol/L Chloride 109 H (98-107) mmol/L Carbon Dioxide 20 L (22-30) mmol/L Glucose 120 H (74-99) mg/dL Troponin I 0.042 H* (0.000-0.034) ng/mL 07/01/24 07/01/24 Range/Units 18:29 20:50 Lymphocytes # (1.0-4.8) k/uL Sodium (137-145) mmol/L Chloride (98-107) mmol/L Carbon Dioxide (22-30) mmol/L Glucose (74-99) mg/dL Troponin I 0.047 H* 0.057 H* (0.000-0.034) ng/mL Assessment and Plan Assessment: Chronic dizziness with recent worsening associated with vomiting Elevated troponin, rule out cardiac causes Paroxysmal A-fib History of CVA History of brain mass Plan: Check orthostatic vitals Continue with aspirin and Eliquis Cardiology and neurology team consult Labs and medication were reviewed.. Continue same treatment. Continue with symptomatic treatment. Resume home medication. Monitor labs and vitals. DVT and GI prophylaxis. Further recommendations as per clinical course of the patient DVT prophylaxis: Eliquis GI Prophylaxis: Pe Protonix PT/OT: Pending Prognosis is guarded
--- NOTE | 2024-07-02 12:20 | P.CRDCN ---
History of Present Illness Consult date: 07/02/24 History of present illness: HISTORY OF PRESENTING ILLNESS Patient is a 84-year-old with past medical history of CAD status post CABG in 2010 in [place], history of A-fib, CVA/TIA. He presented to the hospital because of concerns of lightheadedness and dizziness along with increased nausea vomiting and abdominal discomfort. He has been having this abdominal discomfort for last 1 year which has been on and off comes on suddenly. His dizziness is mostly associated when he has his abdominal discomfort and feels nauseous. 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 He denies any exertional chest pain shortness of breath. On admission his ECG showed rate controlled atrial fibrillation, heart rate 82 bpm, IVCD, left axis deviation. Chest x-ray shows mild interstitial markings. Labs shows troponin 0.04, 0.05, troponin was elevated but only with a flat pattern and was minimally elevated. Hemoglobin was 14, BP 102/61, heart rate 60. Social Hx: Family Hx: non contributary to current clinical scenario REVIEW OF SYSTEMS 14 point review of system is negative except what is mentioned above in HPI. PHYSICAL EXAMINATION Neck: Brisk carotid upstroke, no jugular venous distention. Lungs: Clear to auscultation. Heart: Irregularly irregular pulse, no significant murmurs appreciated Abdomen: Soft nontender, positive bowel sounds. Extremities: No edema, intact distal pulses. Neuro: Alert, oritented, no focal deficits. Detailed neuro exam was not performed. ASSESSMENT Borderline elevated troponin with flat pattern with prior history of CABG and A- fib, less likely related to ACS Dizziness, associate with nausea Abdominal discomfort History of CAD status post CABG 2010 History of CVA Chronic atrial fibrillation, ventricular response not on any rate controlling agents. PLAN Obtain orthostatic vital signs Obtain echocardiogram Continue Eliquis, continue aspirin I would recommend to monitor telemetry. Obtain a 14-day extended Holter monitor picked up from [facility] office to evaluate if patient is getting bradycardic and that might be the reason for his dizziness. Primary team to evaluate reasons for nausea, abdominal discomfort/GERD. I would recommend GI evaluation in patient or outpatient. I would recommend outpatient follow-up with cardiology. Geovanny Wheeler MD, FACC, RPVI Thank you for allowing [facility] to participate in t his patient's care. Feel free to reach out in case of any followup questions. Past Medical History Past Medical History: Atrial Fibrillation, CVA/TIA, Myocardial Infarction ([place]) Last Myocardial Infarction Date:: 15 years ago History of Any Multi-Drug Resistant Organisms: None Reported Past Surgical History: Coronary Bypass/CABG Past Anesthesia/Blood Transfusion Reactions: No Reported Reaction Past Psychological History: No Psychological Hx Reported Smoking Status: Former smoker Medications and Allergies Home Medications Medication Instructions Recorded Confirmed Type Aspirin 81 mg PO DAILY tab 06/01/23 07/01/24 Rx Apixaban [Eliquis] 5 mg PO BID 07/01/24 07/01/24 History Atorvastatin [Lipitor] 80 mg PO DAILY 07/01/24 07/01/24 History Omeprazole Magnesium [PriLOSEC OTC] 20 mg PO DAILY PRN 07/01/24 07/01/24 History Pantoprazole [Protonix] 40 mg PO DAILY 07/01/24 07/01/24 History Allergies Allergy/AdvReac Type Severity Reaction Status Date / Time No Known Allergies Allergy Verified 07/01/24 17:20 Physical Exam Vitals: Vital Signs Temp Pulse Pulse Resp BP Pulse Ox 07/02/24 10:50 62 20 91/66 96 07/02/24 06:30 98.1 F 60 18 102/61 95 07/02/24 04:00 69 18 126/73 95 07/02/24 03:00 71 18 111/80 95 07/02/24 02:00 68 18 105/62 95 07/02/24 01:00 88 18 116/65 95 07/02/24 00:00 74 18 100/65 95 07/01/24 23:00 76 18 121/78 96 07/01/24 22:00 93 18 111/66 96 07/01/24 21:00 68 18 117/67 96 07/01/24 20:00 91 18 100/78 96 07/01/24 18:24 81 17 147/95 100 07/01/24 16:33 61 24 150/85 98 07/01/24 15:26 97.3 F L 96 19 113/76 98 07/01/24 14:15 96.1 F L 77 15 131/71 98 07/01/24 13:18 80 07/01/24 13:14 95 15 100 07/01/24 13:06 97.6 F 96 17 165/99 100 Results 07/01/24 14:06 07/01/24 14:06 Cardiac Enzymes 07/01/24 07/01/24 07/01/24 Range/Units 14:06 14:06 18:29 AST 29 (17-59) U/L Troponin I 0.042 H* 0.047 H* (0.000-0.034) ng/mL 07/01/24 Range/Units 20:50 AST (17-59) U/L Troponin I 0.057 H* (0.000-0.034) ng/mL Coagulation 07/01/24 Range/Units 14:06 PT 10.9 (10.0-12.5) sec APTT 22.8 (22.0-30.0) sec CBC 07/01/24 Range/Units 14:06 WBC 5.1 (3.8-10.6) k/uL RBC 4.59 (4.30-5.90) m/uL Hgb 14.3 (13.0-17.5) gm/dL Hct 43.4 (39.0-53.0) % Plt Count 161 (150-450) k/uL Comprehensive Metabolic Panel 07/01/24 Range/Units 14:06 Sodium 136 L (137-145) mmol/L Potassium 3.8 (3.5-5.1) mmol/L Chloride 109 H (98-107) mmol/L Carbon Dioxide 20 L (22-30) mmol/L BUN 16 (9-20) mg/dL Creatinine 1.05 (0.66-1.25) mg/dL Glucose 120 H (74-99) mg/dL Calcium 8.8 (8.4-10.2) mg/dL AST 29 (17-59) U/L ALT 18 (4-49) U/L Alkaline Phosphatase 84 (38-126) U/L Total Protein 7.1 (6.3-8.2) g/dL Albumin 4.2 (3.5-5.0) g/dL Current Medications Generic Name Dose Route Start Last Admin Trade Name Freq PRN Reason Stop Dose Admin Apixaban 5 mg 07/01/24 21:00 07/02/24 08:02 Apixaban 5 Mg Tab PO 5 mg BID АННА Administration Protocol Aspirin 81 mg 07/02/24 09:00 07/02/24 08:18 Aspirin 81 Mg PO 81 mg DAILY АННА Administration Atorvastatin Calcium 40 mg 07/03/24 09:00 Atorvastatin 40 Mg Tab PO DAILY АННА Naloxone HCl 0.2 mg 07/01/24 17:51 Naloxone 0.4 Mg/Ml 1 Ml Vial IV Q2M PRN Opioid Reversal Ondansetron HCl 4 mg 07/01/24 17:51 Ondansetron 4 Mg/2 Ml Vial IVP Q8HR PRN Nausea And Vomiting Pantoprazole Sodium 40 mg 07/02/24 07:30 07/02/24 08:02 Pantoprazole 40 Mg Tablet PO 40 mg DAILY@0730 АННА Administration 07/01/24 14:06 07/01/24 14:06
[2024-07-02 14:22] LABS: Magnesium 1.8 mg/dL (1.6-2.3)
[2024-07-02 14:29] LABS: NT-Pro-B-Type Natriuretic Pept 868 pg/mL
--- NOTE | 2024-07-02 16:34 | P.CNNES ---
History of Present Illness Consult date: 07/02/24 Requesting physician: Chaka Overton Reason for Consult: Dizziness, history of CVA and brain mass History of Present Illness: Patient is a 84-year-old right-handed male came to the hospital by ambulance yesterday at 1 PM for dizziness nausea and vomiting. Patient states that his dizzy episodes started about a year ago and first time it happened lasted for an hour. He had about 6 or 7 times over the year. In the last 4 days he had 3 episodes of dizziness, which is not pending, but the vision is moving. He states that these dizzy episodes can happen anytime in any position. Once he was putting brakes on his kids car about 8 months ago when it happened. Last 1 happened when he was just sitting there and it happened. Patient states that when dizziness happens, he starts feeling nauseous, then he starts sweating and after he throws up, he feels better. Overall this episode lasted for an hour. 1 time this episode happened without vomiting as well. Patient has never been seen by ENT specialist. Patient has hearing loss on the left side. He states that when he uses "Maalox" it helps with the hearing. He sometimes gets tinnitus in the left ear when he tries to swallow. Patient denies any history of strokes in the past. He denies any pops, pressure sensation or pain in the ears. As per EMS flowsheet, when they arrived on scene, found patient sitting on a chair alert and orient x 4. mentioned that he started feeling dizzy and nauseous and has been going on for about 20 minutes. Patient has history of GERD and sudden dizzy spells, unknown origin. Patient mentioned that he was eating when this happened. He was working on the [employer] prior. Patient denied any chest pain difficulty breathing nausea. Patient's vitals at the scene was blood pressure 186/101, pulse rate 77 respiration 18 saturation 98%. Blood test shows normal CBC PT PTT, sodium 136 potassium is normal BUN and creatinine normal. Hepatic panel normal troponin mildly elevated 0.042. Chest x-ray showed chronic changes without acute pulmonary process. CT head revealed no acute intracranial process. I personally reviewed CT head, and there is evidence of old encephalomalacia involving the left parietal occipital junction. Also smaller area of encephalomalacia involving the left frontal centrum semiovale. CTA of head and neck revealed no evidence of acute dissection of the cervical internal carotid arteries or vertebral arteries. No flow-limiting arterial stenosis in the neck or head. If there is continued clinical concern for underlying acute infarction, further evaluation with MRI would be recommended. EKG showed atrial fibrillation. Patient currently takes Eliquis 5 mg twice daily, Lipitor 80 mg and aspirin 81 mg. Patient lives with his son and does not use any cane or any assistive device. Patient denies any history of hypertension or diabetes any tobacco use. He quit tobacco about 35 or 40 years ago and smoked only 2 packs/day for 6 or 7 years. He used to drink alcohol and quit 35 years ago. Patient has history of cataract surgery bilaterally. Review of Systems All review of systems mentioned in the HPI otherwise unremarkable. Past Medical History Past Medical History: Atrial Fibrillation, CVA/TIA, Myocardial Infarction ([place]) Last Myocardial Infarction Date:: 15 years ago History of Any Multi-Drug Resistant Organisms: None Reported Past Surgical History: Coronary Bypass/CABG Past Anesthesia/Blood Transfusion Reactions: No Reported Reaction Past Psychological History: No Psychological Hx Reported Smoking Status: Former smoker Medications and Allergies Home Medications Medication Instructions Recorded Confirmed Type Aspirin 81 mg PO DAILY tab 06/01/23 07/01/24 Rx Apixaban [Eliquis] 5 mg PO BID 07/01/24 07/01/24 History Atorvastatin [Lipitor] 80 mg PO DAILY 07/01/24 07/01/24 History Omeprazole Magnesium [PriLOSEC OTC] 20 mg PO DAILY PRN 07/01/24 07/01/24 History Pantoprazole [Protonix] 40 mg PO DAILY 07/01/24 07/01/24 History Allergies Allergy/AdvReac Type Severity Reaction Status Date / Time No Known Allergies Allergy Verified 07/01/24 17:20 Physical Examination - Vital Signs Vital Signs: Vital Signs Temp Pulse Pulse Resp BP Pulse Ox 07/02/24 10:50 62 20 91/66 96 07/02/24 06:30 98.1 F 60 18 102/61 95 07/02/24 04:00 69 18 126/73 95 07/02/24 03:00 71 18 111/80 95 07/02/24 02:00 68 18 105/62 95 07/02/24 01:00 88 18 116/65 95 07/02/24 00:00 74 18 100/65 95 07/01/24 23:00 76 18 121/78 96 07/01/24 22:00 93 18 111/66 96 07/01/24 21:00 68 18 117/67 96 07/01/24 20:00 91 18 100/78 96 07/01/24 18:24 81 17 147/95 100 07/01/24 16:33 61 24 150/85 98 07/01/24 15:26 97.3 F L 96 19 113/76 98 07/01/24 14:15 96.1 F L 77 15 131/71 98 07/01/24 13:18 80 Patient is an elderly male, in no acute distress. He appears younger than his stated age. Patient is alert awake oriented to time place and person. Speech and language functions are normal. Patient can name and repeat very well. No aphasia or dysarthria. Attention, concentration and fund of knowledge is adequate. On cranial nerve examination, pupils are slightly unequal, left appears very slightly larger than the right but both are reacting to light. His visual brown are full on confrontation, with no neglect on double simultaneous stimulation. Extraocular muscles are intact with no nystagmus. Face is symmetric, tongue protrudes to the midline. Palatal elevation and sensation normal, hearing is decreased bilaterally, but more so on the left and shoulder shrug normal, facial sensation normal. On muscle strength testing, there is no pronator drift and the strength is normal in arms and legs distally and proximally except deltoids, which is about 4+ bilaterally from previous probable accidents. Deep tendon reflexes are asymmetric (right/left) biceps 1/2, brachioradialis 1/2, knees 1/1, plantars are flat bilaterally. Sensory to touch is equal with no neglect on double simultaneous stimulation. Cerebellar function showed no ataxia for [id number] testing. No dysdiadochokinesia. No ataxia for [id number] testing on either side. Tone and bulk of muscles normal. Gait deferred.. On general examination, there is no carotid bruit or murmur, S1-S2 audible. Chest is clear on consultation. Abdomen is soft nontender. No organomegaly, bowel sounds present. Peripheral pulses are present. No peripheral edema. Results - Laboratory Findings CBC and BMP: 07/01/24 14:06 07/01/24 14:06 Abnormal Lab Findings: Abnormal Labs 07/01/24 07/01/2407/01/24 14:06 14:06 14:06 Lymphocytes # 0.6 L Sodium 136 L Chloride 109 H Carbon Dioxide 20 L Glucose 120 H Troponin I 0.042 H* 07/01/24 07/01/24 18:29 20:50 Lymphocytes # Sodium Chloride Carbon Dioxide Glucose Troponin I 0.047 H* 0.057 H* Assessment and Plan Assessment: * Recurrent episodes of vertigo with nausea vomiting and intermittent tinnitus, off and on for last 1 year. Rule out Mnire's disease. Rule out arrhythmia. 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 * Hyperlipidemia * History of coronary bypass surgery * Mildly elevated troponin. * Ex tobacco use Plan: * Recommend patient follow-up with ENT specialist outpatient to rule out Mnire's disease. * Cardiology also on board, recommending 2D echo and prolonged Holter monitoring. * CTA of head and neck revealed no evidence of acute dissection of the cervical internal carotid arteries or vertebral arteries. No flow-limiting arterial stenosis in the neck or head. * Orthostatics * Continue Lipitor 40 mg Eliquis 5 mg twice daily and aspirin 81 mg. * Check B12, folate. TSH is low, will defer to IM. * Neurology will follow. Thank you for the consult.
[2024-07-02 19:21] LABS: LDL Cholesterol,Calculated 75.2 mg/dL (0.0-131.0); T4, Free (Free Thyroxine) 1.27 ng/dL (0.80-1.80); VLDL Calculation 17.68 mg/dL (5.00-40.00)
[2024-07-03 07:46] VITALS: BP 96/60; PULSE 53; RESP 17; TEMP 97.8
[2024-07-03] MEDS: ATORVASTATIN 40 MG TAB PO SCH (09:30)
--- NOTE | 2024-07-03 11:47 | CA ---
Transthoracic Echo Report Name: Enoc Schafer Age: 84 Gender: M : 1940 Exam Date: 07/03/2024 08:21 Exam Location: [facility] Ht (in): 64 Wt (lb): 175 Ordering Physician: Geovanny Wheeler MD ([id number]) Attending/Referring Phys: Weapons System Instrument Mechanic Adriana Montanez RDCS Procedure CPT: Indications: NSTEMI h/o CABG Cardiac Hx: Technical Quality: Technically difficult study Contrast 1: Definity Total Dose (mL): 1 Contrast 2: Total Dose (mL): MEASUREMENTS (Male / Female) Normal Values 2D ECHO LV Diastolic Diameter PLAX 4.7 cm 4.2 - 5.9 / 3.9 - 5.3 cm LV Systolic Diameter PLAX 3.7 cm IVS Diastolic Thickness 1.2 cm 0.6 - 1.0 / 0.6 - 0.9 cm LVPW Diastolic Thickness 1.0 cm 0.6 - 1.0 / 0.6 - 0.9 cm LV Relative Wall Thickness 0.5 LVOT Diameter 2.1 cm LV Diastolic Volume MOD BP 129.7 cm??? 67 - 155 / 56 - 104 cm??? LV Systolic Volume MOD BP 84.5 cm??? 22 - 58 / 19 - 49 cm??? LV Ejection Fraction MOD BP 34.8 % >= 55 % LV Cardiac Index MOD BP 1247.2 cm???/min???m??? LV Diastolic Volume MOD 4C 124.5 cm??? LV Systolic Volume MOD 4C 80.1 cm??? LV Ejection Fraction MOD 4C 35.7 % LV Cardiac Index MOD 4C 1226.0 cm???/min???m??? LV Diastolic Length 4C 8.4 cm LV Systolic Length 4C 7.4 cm LV Diastolic Volume MOD 2C 129.2 cm??? LV Systolic Volume MOD 2C 81.1 cm??? LV Ejection Fraction MOD 2C 37.2 % LV Cardiac Index MOD 2C 1327.9 cm???/min???m??? LV Diastolic Length 2C 7.9 cm LV Systolic Length 2C 6.7 cm LA Volume 95.5 cm??? 18 - 58 / 22 - 52 cm??? LA Volume Index 49.8 cm???/m??? 16 - 28 cm???/m??? DOPPLER AV Peak Velocity 162.9 cm/s AV Peak Gradient 10.6 mmHg AV Mean Velocity 116.4 cm/s AV Mean Gradient 6.2 mmHg AV Velocity Time Integral 37.3 cm LVOT Peak Velocity 96.5 cm/s LVOT Peak Gradient 3.7 mmHg LVOT Velocity Time Integral 21.0 cm LVOT Stroke Volume 74.1 cm??? LVOT Stroke Volume Index 40.1 ml/m??? LVOT Cardiac Index 2047.0 cm???/min???m??? AV Area Cont Eq vti 2.0 cm??? AV Area Cont Eq pk 2.1 cm??? MV Area PHT 4.2 cm??? Mitral E Point Velocity 57.7 cm/s Mitral A Point Velocity 21.4 cm/s Mitral E to A Ratio 2.7 MV Deceleration Time 181.8 ms FINDINGS Left Ventricle Left ventricular ejection fraction is estimated at 30-35 %. Mildly increased septal wall thickness. Severely increased left ventricular systolic volume. Moderately decreased left ventricular ejection fraction. Right Ventricle Right ventricular dilatation with moderate to severely reduced function. Unable to estimate the right ventricular systolic pressure. Right Atrium Mild right atrial dilatation. Left Atrium Severely increased left atrial volume. Mildly increased left atrial area. Mitral Valve Structurally normal mitral valve. No evidence for mitral valve prolapse. No mitral stenosis. Trace mitral regurgitation. Aortic Valve Aortic valve not well visualized. No aortic stenosis. Mild aortic regurgitation. Tricuspid Valve Structurally normal tricuspid valve. No tricuspid stenosis. Trace tricuspid regurgitation. Pulmonic Valve Pulmonic valve not well visualized. No pulmonic stenosis. No pulmonic regurgitation. Pericardium No pericardial effusion. Aorta Aortic annulus normal. Ascending aorta not well visualized. CONCLUSIONS Severe LV systolic dysfunction with an ejection fraction of 30-35% Previewed by: Dr. Medhat Sears MD (Electronically Signed) Final Date: 03 July 2024 11:46
[2024-07-03] MEDS ORDERED: MECLIZINE 25 MG TAB PO PRN (12:10)
[2024-07-03] MEDS: CYANOCOBALAMIN 1,000 MCG/ML 1 ML VIAL IM ONE (13:00)
--- NOTE | 2024-07-03 17:40 | P.PN ---
Subjective Progress Note Date: 07/03/24 Patient was seen for a follow-up. Patient denies any dizziness. He feels much better. Patient's family members were also present. Denies any focal symptoms. Patient's son and patient's were present. They mentioned that his belching, each episode starts with belching. Then he starts sweating, nauseous and then dizziness. Once he vomits, he feels better. Objective - Vital Signs Vital signs: Vital Signs Temp 97.8 F 07/03/24 07:00 Pulse 53 L 07/03/24 07:00 Resp 17 07/03/24 07:00 BP 96/60 07/03/24 07:00 Pulse Ox 94 L 07/03/24 07:00 FiO2 Intake & Output 07/02/24 07/03/24 07/03/24 18:59 06:59 18:59 Output Total 800 Balance -800 Weight 79.379 kg Output: Urine 800 - Exam Unchanged. Mentation normal. - Labs CBC & Chem 7: 07/01/24 14:06 07/01/24 14:06 Labs: Abnormal Lab Results - Last 24 Hours (Table) 07/01/24 07/01/24 Range/Units 14:06 14:06 Hemoglobin A1c 6.1 H (<=6.0) % TSH 0.446 L (0.465-4.680) mIU/L Assessment and Plan Assessment: * Recurrent episodes of vertigo with nausea vomiting and intermittent tinnitus, off and on for last 1 year. Rule out Mnire's disease. Rule out arrhythmia. 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 * Low B12. * Hyperlipidemia * History of coronary bypass surgery * Mildly elevated troponin. * Ex tobacco use Plan: * Recommend patient follow-up with ENT specialist outpatient to rule out Mnire's disease. 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 He may need EGD and colonoscopy. * Cardiology also on board, recommending 2D echo and prolonged Holter monitoring. * 2D echo revealed severe LV systolic dysfunction with an EF of 30 to 35%. Severely increased left atrial volume. * CTA of head and neck revealed no evidence of acute dissection of the cervical internal carotid arteries or vertebral arteries. No flow-limiting arterial stenosis in the neck or head. * Orthostatics * Continue Lipitor 40 mg Eliquis 5 mg twice daily and aspirin 81 mg. * B12 314, folate 16.20. We will start B12 replacement. Patient received B12 1000 mcg x 1 dose followed by B12 500 mg orally daily. TSH is low, will defer to IM. * Neurologically clear for discharge. Patient will follow-up with his primary physician, also with neurology, ENT, cardiology and gastro.
--- NOTE | 2024-07-03 21:31 | PN ---
PROGRESS NOTE SUBJECTIVE: Enoc is an 84-year-old gentleman with history of coronary artery disease, status post CABG, history of atrial fibrillation and TIA, who is admitted to hospital with symptoms of dizziness that he has had for a long time. He was evaluated by my associate, Dr. Wheeler on his initial presentation and is currently transferred to [address] [place] [id number] for evaluation of his nausea and abdominal discomfort. OBJECTIVE: GENERAL: Comfortable at rest. VITAL SIGNS: Stable. CHEST: Reveals good air entry bilaterally. Neurology has already been consulted, and we will continue on his current medications. MMODL / IJN: [id number] /
[2024-07-04] MEDS ORDERED: CYANOCOBALAMIN 1,000 MCG/ML 1 ML VIAL IM SCH (09:00)
== END 2024-07-03 13:17 | disposition home or self-care (01) | DRG 149 ==
LOC: EC 13:00 → 3SCARD 17:18 → 6NMEDSUR 07-02 13:34
PROVIDERS: ADMIT Internal Medicine; ATTEND Internal Medicine
DX: R42 Dizziness and giddiness (principal); I48.0 Paroxysmal atrial fibrillation; R79.89 Other specified abnormal findings of blood chemistry; I10 Essential (primary) hypertension; G93.9 Disorder of brain, unspecified; I25.10 Atherosclerotic heart disease of native coronary artery without angina pectoris; R11.2 Nausea with vomiting, unspecified; H93.12 Tinnitus, left ear; E78.5 Hyperlipidemia, unspecified; G93.89 Other specified disorders of brain; Z86.73 Personal history of transient ischemic attack (TIA), and cerebral infarction without residual deficits; Z79.01 Long term (current) use of anticoagulants; I25.2 Old myocardial infarction; Z87.891 Personal history of nicotine dependence; Z95.1 Presence of aortocoronary bypass graft; Z79.82 Long term (current) use of aspirin
CPT/HCPCS: 36415; 70450; 70496; 70498; 71046; 80053; 80061; 82607; 82746; 83036; 83735; 83880; 84439; 84443; 84484; 85025; 85610; 85730; 93005; 93306; 96374; 96376; 99285

== ENCOUNTER 2024-09-02 09:13 | Day surgery (SDC) | payer MEDICARE ==
[2024-09-01 10:42] VITALS: BMI 29.2
[2024-09-02] MEDS: LACTATED RINGERS 1,000 ML IV ONE (09:45)
[2024-09-02 09:51] VITALS: RESP 16; TEMP 97
[2024-09-02] MEDS: LACTATED RINGERS 1,000 ML IV SCH (09:52)
[2024-09-02] MEDS: LIDOCAINE 1% (10MG/ML) FOR IV START INTRADERMA STA (09:53)
[2024-09-02] MEDS ORDERED: LIDOCAINE 1% INJ 10MG/ML (20 ML MDV) ONE (10:47)
[2024-09-02] MEDS ORDERED: PROPOFOL 10 MG/ML 20 ML VIAL IV ONE (10:47)
--- NOTE | 2024-09-02 10:58 | P.PCN ---
Date of Procedure: 09/02/24 Procedure(s) Performed: BRIEF HISTORY: Patient is a 84-year-old, pleasant, white man scheduled an upper endoscopies upon evaluation of intermittent episodes of epigastric pain associate with nausea vomiting for the last 2 months duration. PROCEDURE PERFORMED: Esophagogastroduodenoscopy with biopsy. PREOPERATIVE DIAGNOSIS:/Epigastric pain with nausea vomiting for the last few months. IV sedation per anesthesia. PROCEDURE: After informed consent was obtained, the patient was brought into the endoscopy unit. IV sedation was administered by Anesthesia under continuous monitoring. Initially the Olympus GIF-140 video endoscope was inserted into the mouth. Esophagus intubated without any difficulty. It was gradually advanced into the stomach and duodenum and carefully examined. The bulb mild duodenitis and the second part of the duodenum appeared normal. The scope at this time was withdrawn to the stomach, adequately insufflated with air, and upon careful examination, mucosa of the antrum mild gastritis and biopsies were done from this area. Mucosa of the, body, cardia and the fundus appeared normal. The scope was then withdrawn into the esophagus. The GE junction was located at 39 cm from the incisors. Small hiatal hernia noted. The esophagus appeared normal. There were no erosions or ulcerations seen and the patient tolerated the procedure well. IMPRESSION: 1. Mild antral gastritis and duodenitis. 2. Small hiatal hernia. RECOMMENDATIONS: The findings of this examination were discussed with the patient as well as his family. He was advised to follow with the biopsy results. Continue with Protonix 40 mg daily and follow antireflux measures. Follow-up in the office in 2 weeks.
[2024-09-02 11:20] VITALS: BP 133/80; PULSE 74
== END 2024-09-02 11:35 | disposition home or self-care (01) ==
LOC: ORWHC2ENDO 09:13
PROVIDERS: ATTEND Internal Medicine Gastroenterology
DX: K29.50 Unspecified chronic gastritis without bleeding (principal); K29.80 Duodenitis without bleeding; K44.9 Diaphragmatic hernia without obstruction or gangrene; E78.5 Hyperlipidemia, unspecified; I48.91 Unspecified atrial fibrillation; I25.10 Atherosclerotic heart disease of native coronary artery without angina pectoris; K21.9 Gastro-esophageal reflux disease without esophagitis; I50.9 Heart failure, unspecified; Z95.5 Presence of coronary angioplasty implant and graft; Z86.73 Personal history of transient ischemic attack (TIA), and cerebral infarction without residual deficits; Z79.01 Long term (current) use of anticoagulants; Z79.82 Long term (current) use of aspirin; Z79.899 Other long term (current) drug therapy
CPT/HCPCS: 88305; 88342; 43239; J2003; J2704